=== PATIENT | male | born 1955 | race Caucasian/White ===

== ENCOUNTER 2024-02-11 04:32 | Emergency (ER) | payer MEDICARE ==
[2024-02-11 05:02] VITALS: TEMP 97.6
--- NOTE | 2024-02-11 06:28 | XR ---
EXAM: XR Right Ribs and AP Chest, 3 or More Views CLINICAL HISTORY: ITS.REASON XR Reason: fall TECHNIQUE: Frontal and oblique views of the right ribs and frontal view of the chest. COMPARISON: No relevant prior studies available. FINDINGS: Lungs: Unremarkable. No consolidation. Pleural space: Small left pleural effusion or thickening. No pneumothorax. Heart: Unremarkable. No cardiomegaly. Mediastinum: Unremarkable. Normal mediastinal contour. Bones/joints: Right 6th and seventh right anterolateral rib fractures with minimal displacement. Mild dextroscoliosis of the thoracic spine. IMPRESSION: 1. Right 6th and seventh right anterolateral rib fractures with minimal displacement. 2. Small left pleural effusion or thickening.
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
[2024-02-11] MEDS: ACET/COD 300 MG/30 MG STARTER PACK 6 TAB BTL PO STA (06:46)
[2024-02-11] MEDS: MORPHINE SULFATE 4 MG/ML SYRINGE IM STA (06:58)
[2024-02-11 07:40] VITALS: BP 156/82; PULSE 65; RESP 16
== END 2024-02-11 07:30 | disposition home or self-care (01) ==
LOC: EC 04:32
DX: S22.41XA Multiple fractures of ribs, right side, initial encounter for closed fracture (principal); Z88.8 Allergy status to other drugs, medicaments and biological substances; V86.56XA Driver of dirt bike or motor/cross bike injured in nontraffic accident, initial encounter; Y92.481 Parking lot as the place of occurrence of the external cause; Y93.55 Activity, bike riding
CPT/HCPCS: 93005; 71101; 99284; 96372; J2270